=== PATIENT | male | born 1990 | race Caucasian/White ===

== ENCOUNTER 2024-11-15 23:17 | Emergency (ER) | payer MEDICAID, SELFPAY ==
[2024-11-15] MEDS: diphenhydrAMINE HCL 50 MG/ML VIAL IM (23:30)
[2024-11-15] MEDS: diazePAM 10 MG/2 ML CARTRIDGE 5 MG IM (23:30)
[2024-11-15] MEDS: Haloperidol Lactate 5 MG/ML VIAL IM (23:30)
[2024-11-15] MEDS: ondansetron HCL 4 MG/2 ML VIAL IM (23:30)
[2024-11-15 23:41] VITALS: RESP 23; BMI 38.0
[2024-11-15 23:45] VITALS: BP 126/79; PULSE 80; RESP 20; TEMP 37.2; O2SAT 96
[2024-11-16] MEDS: Midazolam HCl 5 MG/ML VIAL 10 MG IM (00:10)
[2024-11-16] MEDS: OLANZapine 10 MG VIAL 15 MG IM (00:10)
[2024-11-16 00:30] VITALS: BP 128/99; PULSE 86; RESP 18; O2SAT 96
--- NOTE | 2024-11-16 01:15 | ED.PSYCH ---
HPI - Psych General Chief Complaint: Behavioral Concerns Stated Complaint: hallucinating on mushrooms Time Seen by Provider: 11/15/24 23:25 Source: EMS Mode of arrival: EMS Limitations: other History of Present Illness ED Provider: Dr. Maria Del Carmen Gunderson HPI Narrative: patient comes to the emergency room via EMS. According to EMS, they got called by PD because the patient was in his aunt's house acting erratic, seems that he ingested mushrooms? EMS reports that the patient grabbed his uncle's urn, purposefully spilled the ashes on the floor and patient proceeded to throw himself in the ashes and make snow/akil angels, then he vomited on the ashes. patient is too intoxicated /under the influence of drugs to give any significant history. Patient is very combative. Related Data Allergies Allergy/AdvReac Type Severity Reaction Status Date / Time Penicillins [PENICILLINS] Allergy Severe HIVES Verified 11/15/24 23:43 amoxicillin [Amoxicillin] Allergy Unknown , Hives, Verified 11/15/24 23:43 hives penicillin V Allergy Unknown Unknown, Verified 11/15/24 23:43 hives Review of Systems Review of Systems: Yes Unobtainable due to mental status [facility] Past Medical History Medical History (Updated 11/16/24 @ 07:25 by Danny Wynne MD) Polysubstance abuse Social History Social History Advance Directives: No Advance Directives Information Provided: No Physical Exam Vital Signs: Vital Signs: Last Vital Signs Temp 97.4 F 11/16/24 07:17 Pulse 58 11/16/24 07:17 Resp 14 11/16/24 07:17 BP 92/62 11/16/24 07:17 Pulse Ox 98 11/16/24 07:17 O2 Del Method Room Air 11/16/24 07:17 BMI result Body Mass Index 38.0 Const: Other: Appearance: Alert. confused, acting erratic, not making any sense. Looks spaced out, staring into space, and drooling/spitting Eyes: Pupils equal, round and reactive to light. ENT: Pharynx normal. Neck: Normal inspection. Neck supple. No lymph nodes noted. No crepitus CVS: Normal heart rate and rhythm. Pulses normal. Normal S1 and S2 Respiratory: No respiratory distress. Breath sounds normal. No Wheezing. No rales Abdomen: Soft and nontender. No rigidity. No distention. Skin: Skin warm and diaphoretic, Normal skin color. Normal skin turgor. Extremities: moves all extremities Neuro: under the influence of drugs, unable to participate in cranial nerve assessment, grossly, cranial nerves 2 through 12 are intact Psych: erratic behavior, combative Course Course Course Narrative: been arrival, patient has been very erratic. Patient had to be given Haldol 5 mg IM, diphenhydramine 50 mg IM, Valium 5 mg IM. Patient actively vomiting /spitting, also given Zofran 5 mg IM. After all those medications, initially the patient was sitting still. However, within an hour, patient got up and started running around the emergency room, PD had to jaylin him and return him to his bed. Patient received additional midazolam 10 mg IM and olanzapine 15 mg IM. at this time, 01:30, patient is sleeping. We are able to obtain Labs. I was informed by the patient's nurse that patient blood pressure has dropped to the high 80s, likely secondary to Versed. Patient receiving IV fluids. Reevaluation(s) Reevaluation #1: Dr. Wynne: I was present during the period of the patient's acute delirium. He was initially agitated and difficult to redirect and required sedation. Security was required as well. After receiving several doses of sedative medications the patient finally fell asleep. He was observed during the remainder of the overnight shift. This morning the patient is awake and alert and coherent. He says that he normally takes Abilify and Zoloft and that he has a prescriber at the [facility]. He says that he was not doing anything to intentionally try to harm himself last night. He admits to using psychedelics mushrooms last night and says that he was only looking for a good trip. He is surprised to learn that he has a bad trip. At this point he feels comfortable being discharged. Denies any thoughts about harming himself or anyone else. He will call his mother for a ride. Time: 07:27 Medications Administered Discontinued Medications Generic Name Dose Route Start Last Admin Trade Name Freq PRN Reason Stop Dose Admin Diazepam 5 mg 11/15/24 23:25 11/15/24 23:30 Diazepam 10 Mg/2 Ml Cartridge IM 11/15/24 23:26 5 mg STAT STA Administration Diphenhydramine HCl 50 mg 11/15/24 23:25 11/15/24 23:30 Diphenhydramine Hcl 50 Mg/Ml Vial IM 11/15/24 23:26 50 mg ONCE ONE Administration Haloperidol Lactate 5 mg 11/15/24 23:25 11/15/24 23:30 Haloperidol Lactate 5 Mg/Ml Vial IM 11/15/24 23:26 5 mg STAT STA Administration Sodium Chloride 2,000 mls @ 999 mls/hr 11/16/24 01:34 11/16/24 03:39 Ns IVCONT 11/16/24 03:34 Infused .Q2H1M ONE Infusion Midazolam HCl 10 mg 11/15/24 23:59 11/16/24 00:10 Midazolam Hcl 5 Mg/Ml Vial IM 11/16/24 00:00 10 mg ONCE ONE Administration Olanzapine 15 mg 11/15/24 23:59 11/16/24 00:10 Olanzapine 10 Mg Vial IM 11/16/24 00:00 15 mg ONCE ONE Administration Ondansetron HCl 4 mg 11/15/24 23:25 11/15/24 23:30 Ondansetron Hcl 4 Mg/2 Ml Vial IM 11/15/24 23:26 4 mg ONCE ONE Administration Medical Decision Making Medical Decision Making MDM Narrative: My interpretation of labs: patient's hematology shows a normal white blood cell count, platelets slightly decreased at 117. The previous labs for comparison. No significant abnormality in patient's chemistry, AST and ALT bumped, normal T bili and D bili, normal alkaline phosphatase. , ETOH negative for alcohol patient is likely under the influence of drugs, likely psilocybin according to EMS, the patient's aunt mentioned to them that the patient has history of schizophrenia at this time, 02:30, patient is awake, sleeping comfortably. When patient is more awake, he will need assessment for SI/HI. patient is under physician observation sign out given to my colleague Dr. Wynne Differential Diagnosis Differential Diagnoses: The differential diagnosis associated with the presentation includes ( alcohol intoxication, polysubstance abuse, schizophrenia) Admission/Observation Consideration of admission/observation: Escalation of care including admission/observation considered ( patient is under physician observation, waiting for the patient to be alert and oriented x3 and to be reassessed for SI HI) Lab Data [facility] Lab Attestation statement: I reviewed the patient's lab results. 11/16/24 01:15 11/16/24 01:46 Labs: Lab Results 11/16/24 11/16/24 Range/Units 01:15 01:46 WBC 9.2 (4.8-10.8) X10*3/uL RBC 4.49 L (4.60-5.80) X10*6/uL Hgb 15.0 (14.0-18.0) g/dl Hct 40.9 L (42.0-52.0) % MCV 91.1 (80.0-98.0) fL MCH 33.4 H (27.0-33.0) pg MCHC 36.7 H (31.0-36.0) g/dl RDW 12.4 (11.0-16.0) % Plt Count 117 L (160-400) X10*3/uL MPV 9.1 L (9.4-12.4) fL Immature Gran % (Auto) 0.3 (0.0-0.4) % Neut % (Auto) 72.7 (45-73) % Lymph % (Auto) 16.4 L (20-40) % [place] % (Auto) 8.4 (2-11) % Eos % (Auto) 2.0 (0-4) % Baso % (Auto) 0.2 (0-2) % Lymph # (Auto) 1.5 (1.2-4.9) X10*3/uL [place] # (Auto) 0.8 (0.1-1.2) X10*3/uL Eos # (Auto) 0.2 (0.0-0.4) X10*3/uL Baso # (Auto) 0.0 (0.0-0.2) X10*3/uL Abs Immat Gran (auto) 0.03 (0.00-0.03) X10*3/uL Absolute Neuts (auto) 6.7 (2.0-8.3) x10*3/uL Absolute Nucleated RBC 0.000 (0.0-0.012) X10*3/uL Nucleated RBC % (auto) 0.0 (0.0-0.2) /100WBC Sodium 141 (135-145) mmol/L Potassium 3.7 (3.3-5.1) mmol/L Chloride 107 (96-108) mmol/L Carbon Dioxide 24 (22-29) mmol/L Anion Gap 14 (12-20) BUN 20 H (9-16) mg/dL Creatinine 0.70 (0.5-1.4) mg/dL Estim Creat Clear Calc 181.7 Estimated GFR > 60 Random Glucose 132 H (60-115) mg/dL Calcium 9.1 (8.4-10.2) mg/dL Magnesium 2.0 (1.6-2.6) mg/dL Total Bilirubin 1.0 (0.0-1.0) mg/dL Direct Bilirubin 0.4 (0.0-0.5) mg/dL AST 144 H (5-37) U/L ALT 190 H (0-40) U/L Alkaline Phosphatase 109 (39-117) U/L Total Protein 7.4 (6.5-8.0) g/dL Albumin 4.6 (3.5-5.0) g/dL Ethyl Alcohol < 10 mg/dL Critical Care Time Critical Care Time Critical Care Time: Yes Total Critical Care Time: 60 Attestation: I have personally provided critical care time. Time includes review of lab data, radiology results, discussion with consultants, and monitoring for potential decompensation. Intervention performed as documented. Discharge Plan Discharge Clinical Impression: Agitation, Delirium due to dissociative drug Patient Disposition: Home, Self-Care Additional Instructions: Please try to rest and take it easy today. Resume your normal medications. I would recommend avoiding the substances that you took last night. You seem to have had a bad trip. Please follow up with your regular medical and behavioral health providers. If you feel significantly worse please return to the emergency room. Referrals: [facility] [Provider Group] Nabila Gardner MD [Primary Care Provider] - Discharge Date/Time: 11/16/24 07:43 Print Language: Tajik
[2024-11-16 01:21] LABS: Basophils Percent Auto 0.2 % (0-2); Monocytes Percent Auto 8.4 % (2-11); PLT CLUMP 1; SCAN SMEAR FLAG 1
[2024-11-16 01:23] LABS: Eosinophils Absolute Auto 0.2 X10*3/uL (0.0-0.4); Hematocrit 40.9 % (42.0-52.0); Imm Gran Abs Auto 0.03 X10*3/uL (0.00-0.03); Imm Gran Pct Auto 0.3 % (0.0-0.4); Lymphocytes Absolute Auto 1.5 X10*3/uL (1.2-4.9); Lymphocytes Percent Auto 16.4 % (20-40); Mean Corpuscular HGB Conc 36.7 g/dl (31.0-36.0); Mean Corpuscular Hemoglobin 33.4 pg (27.0-33.0); Mean Corpuscular Volume 91.1 fL (80.0-98.0); Mean Platelet Volume 9.1 fL (9.4-12.4); Monocytes Absolute Auto 0.8 X10*3/uL (0.1-1.2); Neutrophils Absolute Auto 6.7 x10*3/uL (2.0-8.3); Neutrophils Percent Auto 72.7 % (45-73); Red Blood Count 4.49 X10*6/uL (4.60-5.80); Red Cell Distribution Width 12.4 % (11.0-16.0)
[2024-11-16 01:24] LABS: MANUAL DIFF FLAG NO; Platelet Count 117 X10*3/uL (160-400); White Blood Count 9.2 X10*3/uL (4.8-10.8)
[2024-11-16] MEDS: 0.9 % Sodium Chloride 2,000 ML 999 ML IVCONT (01:50)
[2024-11-16 02:15] LABS: Alanine Aminotransferase 190 U/L (0-40); Albumin Level 4.6 g/dL (3.5-5.0); Alkaline Phosphatase 109 U/L (39-117); Anion Gap 14 (12-20); Aspartate Amino Transferase 144 U/L (5-37); Bilirubin Direct 0.4 mg/dL (0.0-0.5); Blood Urea Nitrogen 20 mg/dL (9-16); Calcium 9.1 mg/dL (8.4-10.2); Carbon Dioxide 24 mmol/L (22-29); Chloride 107 mmol/L (96-108); Creatinine Clr Calc Pharmacy 181.7; Estimated Glomerular Filt Rate > 60; Ethanol < 10 mg/dL; Glucose Random 132 mg/dL (60-115); Potassium 3.7 mmol/L (3.3-5.1); Sodium 141 mmol/L (135-145); Total Protein 7.4 g/dL (6.5-8.0)
[2024-11-16 03:43] VITALS: BP 136/82; PULSE 62
--- NOTE | 2024-11-16 06:01 | PC.NURSE ---
pt compliant with twisting frame changer.
[2024-11-16 07:17] VITALS: BP 92/62; PULSE 58; RESP 14; TEMP 36.3; O2SAT 98
== END 2024-11-16 07:43 | disposition home or self-care (01) ==
PROVIDERS: Emergency Medicine; Emergency Provider Emergency Medicine; PCP Internal Medicine
DX: R45.1 Restlessness and agitation (principal); F19.121 Other psychoactive substance abuse with intoxication delirium
CPT/HCPCS: 36415; 80048; 80076; 80307; 83735; 85025; 96360; 96361; 96372; 99284; J1200; J1630; J2250; J2359; J2405; J3360

== ENCOUNTER 2024-12-22 13:48 | Emergency (ER) | payer MEDICAID, SELFPAY ==
--- NOTE | 2024-12-22 14:01 | ED_ITS ---
HPI - General Adult General Chief complaint: General Medical Stated complaint: PARANOID Time Seen by Provider: 12/22/24 14:01 History of Present Illness ED Provider: Sherrell KAHN narrative: The patient is a 34-year-old male who may have some history of an underlying psychiatric disorder. He also has a history of substance use disorder. He has 1 previous emergency room visit last month that was related to agitation secondary to mushroom use. Today he was brought to the hospital by ambulance after police became involved. There was some kind of a jaylin through the greco. The patient claims someone was chasing him. He says that someone with a motorcycle helmet and a jump soup was chasing him through the greco. He also says that he has been using IV drugs including fentanyl and cocaine. A aviation tactical readiness officer is at the bedside but the patient is not in handcuffs. Related Data Allergies Allergy/AdvReac Type Severity Reaction Status Date / Time Penicillins (PENICILLINS) Allergy Severe HIVES Verified 12/22/24 14:14 amoxicillin (Amoxicillin) Allergy Unknown , Hives, Verified 12/22/24 14:14 hives penicillin V Allergy Unknown Unknown, Verified 12/22/24 14:14 hives Review of Systems 2 Review of Systems: Yes all other systems are reviewed and are negative PMFSH Past Medical History Medical History (Updated 12/22/24 @ 18:27 by Danny Wynne MD) Polysubstance abuse Social History Social History Smoked in Last 30 Days: Yes Use of substances other than those prescribed or required for medical reasons: No Advance Directives: No Advance Directives Information Provided: Yes Do you have a plan to hurt others: No Plan Physical Exam ED Vital Signs: Vital Signs - 24 hr 12/22/24 14:12 12/22/24 17:01 12/22/24 18:45 Temperature 98.1 F Pulse Rate 94 76 79 Respiratory Rate 18 17 16 Blood Pressure 116/65 107/59 L 100/52 L Pulse Oximetry 94 96 98 Oxygen Delivery Method Room Air Room Air Room Air 12/22/24 19:00 Temperature 98.2 F Pulse Rate 79 Respiratory Rate 16 Blood Pressure 100/52 L Pulse Oximetry 98 Oxygen Delivery Method Room Air BMI result Body Mass Index 26.6 Const Other: The patient is awake and alert. He looks quite sweaty as if he had just exerted himself a lot. He was pleasant and cooperative. He did not seem in distress. HENDE Other: The face is symmetrical. ?Mucous membranes moist. Eyes General: appearance normal, both eyes and all related structures Neck Neck: Yes normal visual inspection, Yes full ROM and Yes no lymphadenopathy Resp Effort & Inspection: normal respiratory effort Auscultation: clear to auscultation bilaterally Cardio Rate: regular rate Rhythm: regular rhythm Heart sounds: S1 normal heart sound present, S2 normal heart sound present and Murmur heart sound present (No murmur heard) GI Other: Abdomen is soft and nontender Skin Other: The patient was sweaty. The patient has several areas where he has track segura on his arms. No obvious signs of cellulitis or other infection. Neuro Other: The patient is awake and alert. He seems reasonably well oriented. He is not frankly encephalopathic. Cranial nerves 2-12 are intact. He moves his extremities normally and symmetrically and appropriately. He seems to be without any focal neurological deficit Extrem Other: There is no calf swelling or tenderness. No asymmetry. No peripheral edema. Medications Administered Discontinued Medications Generic Name Dose Route Start Last Admin Trade Name Freq PRN Reason Stop Dose Admin Sodium Chloride 1,000 mls @ 999 mls/hr 12/22/24 17:15 12/22/24 18:30 Ns IV 12/22/24 18:15 Infused .Q1H1M RADHA Infusion Sodium Chloride 1,000 mls @ 999 mls/hr 12/22/24 18:15 12/22/24 18:38 Ns IV 12/22/24 19:15 Not Given .Q1H1M RADHA Medical Decision Making Medical Decision Making [facility] Narrative: The patient is a 34-year-old male who was brought to the hospital after having a jaylin with police. He was brought here for medical clearance. I believe he may be under arrest for an outstanding warrant. He has signs of recent IV drug use because of track segura on his arms but I see no signs of acute infection. I hear no cardiac murmur. He was very sweaty and it was very hot out today. His labs show that he was somewhat dehydrated. His BUN and creatinine were somewhat higher than previously. He was given IV fluids. His EKG showed a prolonged QTC. He is on methadone. He is part of a methadone program. He was observed and given IV fluids. A 2nd EKG showed no change in his QTC but a 3rd EKG showed significant improvement. At that point I felt he was medically clear and he was discharged. He was taken into police custody of the time of discharge. Lab Data 12/22/24 14:37 12/22/24 14:37 Labs: Lab Results 12/22/24 12/22/24 Range/Units 14:37 14:53 WBC 9.0 (4.8-10.8) X10*3/uL RBC 4.35 L (4.60-5.80) X10*6/uL Hgb 14.0 (14.0-18.0) g/dl Hct 39.0 L (42.0-52.0) % MCV 89.7 (80.0-98.0) fL MCH 32.2 (27.0-33.0) pg MCHC 35.9 (31.0-36.0) g/dl RDW 12.4 (11.0-16.0) % Plt Count 130 L (160-400) X10*3/uL MPV 10.3 (9.4-12.4) fL Immature Gran % (Auto) 0.6 H (0.0-0.4) % Neut % (Auto) 70.9 (45-73) % Lymph % (Auto) 19.4 L (20-40) % [place] % (Auto) 9.1 (2-11) % Eos % (Auto) 0.0 (0-4) % Baso % (Auto) 0.0 (0-2) % Lymph # (Auto) 0.3 L (1.2-4.9) X10*3/uL [place] # (Auto) 0.2 (0.1-1.2) X10*3/uL Eos # (Auto) 0.0 (0.0-0.4) X10*3/uL Baso # (Auto) 0.0 (0.0-0.2) X10*3/uL Abs Immat Gran (auto) 0.01 (0.00-0.03) X10*3/uL Absolute Neuts (auto) 1.2 L (2.0-8.3) x10*3/uL Absolute Nucleated RBC 0.000 (0.0-0.012) X10*3/uL Nucleated RBC % (auto) 0.0 (0.0-0.2) /100WBC Smear Tech's Comments VERIFIED Sodium 141 (135-145) mmol/L Potassium 4.0 (3.3-5.1) mmol/L Chloride 102 (96-108) mmol/L Carbon Dioxide 29 (22-29) mmol/L Anion Gap 14 (12-20) BUN 13 (9-16) mg/dL Creatinine 1.48 H (0.5-1.4) mg/dL Estim Creat Clear Calc 67.3 Estimated GFR 54 Random Glucose 92 (60-115) mg/dL Calcium 9.7 D (8.4-10.2) mg/dL Magnesium 2.1 (1.6-2.6) mg/dL Total Bilirubin 1.9 H (0.0-1.0) mg/dL Direct Bilirubin 0.7 H (0.0-0.5) mg/dL AST 72 H (5-37) U/L ALT 65 H (0-40) U/L Alkaline Phosphatase 101 (39-117) U/L Total Protein 7.9 (6.5-8.0) g/dL Albumin 4.6 (3.5-5.0) g/dL Urine Color Dark Yellow Urine Appearance Cloudy Urine pH 5.5 (5.0-9.0) Ur Specific [place] >= 1.030 H (1.005-1.025) Urine Protein 100 (2+) H (Neg-Trace) mg/dL Urine Glucose (UA) Negative (Negative) mg/dL Urine Ketones Trace (Negative) mg/dL Urine Blood Negative (Negative) Urine Nitrite Positive H (Negative) Ur Leukocyte Esterase Small (1+) H (Negative) Urine RBC 0-2 (0-2) /HPF Urine WBC 0-5 (0-5) /HPF Ur Squamous Epith Cells 11-20 (0-2) /HPF Urine Bacteria None Seen (None Seen) Hyaline Casts >20 (0-2) /LPF Urine Opiates Screen POSITIVE H (Not Detect) Ur Buprenorphine Scrn Not Detected (Not Detect) ng/mL Ur Oxycodone Screen Not Detected (Not Detect) ng/mL Urine Methadone Screen Positive H (Not Detect) ng/mL Urine Fentanyl Screen POSITIVE H (Not Detect) Ur Barbiturates Screen Not Detected (Not Detect) Ur Phencyclidine Scrn Not Detected (Not Detect) Ur Amphetamines Screen Not Detected (Not Detect) U Benzodiazepines Scrn Not Detected (Not Detect) Urine Cocaine Screen POSITIVE H (Not Detect) U Marijuana (THC) Screen POSITIVE H (Not Detect) Ethyl Alcohol < 10 mg/dL Discharge Plan Discharge Clinical Impression: Dehydration Patient Disposition: Home, Self-Care Additional Instructions: You were somewhat dehydrated. You were given IV fluids. Please try to avoid using IV drugs in the future. Please try to get a primary care doctor. We have provided contact information for some local primary care doctor offices Return to the emergency room if you feel significantly worse Referrals: [facility] [Provider Group] [facility] [place], [place]] [facility] [place] [facility] [Provider Group, Primary Care] Interventions: ED Discharge Assessment Last Done: 12/22/24 19:00 Discharge Date/Time: 12/22/24 19:00 Print Language: Bahamian
--- NOTE | 2024-12-22 14:08 | ECG_ITS ---
Test Reason : OVERDOSE Blood Pressure : */* mmHG Vent. Rate : 90 BPM Atrial Rate : 90 BPM P-R Int : 174 ms QRS Dur : 106 ms QT Int : 464 ms P-R-T Axes : 74 47 60 degrees QTcB Int : 567 ms Normal sinus rhythm Incomplete right bundle branch block Prolonged QT Abnormal ECG No previous ECGs available Referred By: Danny Wynne Electronically Signed By: SADAF GOLDBERG
[2024-12-22 14:12] VITALS: BP 116/65; BP 122/85; PULSE 94; RESP 18; TEMP 36.7; O2SAT 94; O2SAT 95; BMI 26.6
--- OUTSIDE RECORDS SUMMARY | 2024-12-22 14:52 | XMS_ITS | Clinical Summary ---
Author Organization [facility] Address [address] [place] [address] Care Team Providers Care Scrap Sorter Name Role Phone Williams Quintero Primary Care Prov ider Source Comments PLEASE NOTE, if this patient is a minor, it may be UNLAWFUL to discuss sensitive information that is contained in these records (such as FAMILY PLANNING, MENTAL HEALTH or SUBSTANCE ABUSE) with the minor patient's parent or other person without the patient's specific authorization.[facility] Social History Tobacco Use Types Packs/Day Years Used Date Smoking Tobacco: Never Assessed Sex and Gender Information Value Date Recorded Sex Assigned at Not on file Legal Sex Male 12:29 PM PDT Gender Identity Not on file Sexual Orientation Not on file Plan of Treatment Not on file Insurance [facility] Care Teams Scrap Sorter Relationship Specialty Start Date End Date Williams Quintero FNP [address] [place] [address] PCP - General 03/22/20
[2024-12-22 15:05] LABS: Appearance Urine Cloudy; Glucose Urine UA Negative (Negative); PH 5.5 (5.0-9.0); Specific Gravity - Urine >= 1.030 (1.005-1.025); UMIC TRIGGER UACC YES
[2024-12-22 15:10] LABS: Cannabinoid Screen Urine POSITIVE (Not Detect)
[2024-12-22 15:13] LABS: Alanine Aminotransferase 65 U/L (0-40); Albumin Level 4.6 g/dL (3.5-5.0); Alkaline Phosphatase 101 U/L (39-117); Anion Gap 14 (12-20); Aspartate Amino Transferase 72 U/L (5-37); Blood Urea Nitrogen 13 mg/dL (9-16); Calcium 9.7 mg/dL (8.4-10.2); Carbon Dioxide 29 mmol/L (22-29); Chloride 102 mmol/L (96-108); Creatinine Clr Calc Pharmacy 67.3; Estimated Glomerular Filt Rate 54; Potassium 4.0 mmol/L (3.3-5.1); Sodium 141 mmol/L (135-145); Total Protein 7.9 g/dL (6.5-8.0)
--- NOTE | 2024-12-22 15:16 | PC.NURSE ---
patient a&ox3, calm/cooporative at this time, tech to draw labs/do ekg, police at bedside- security came to bedside did search of patient, after discussion with security, provider and PD it was decided to leave the patient in his clothes as he will discharge to police custody once labs come back.
[2024-12-22 15:30] LABS: UACC Culture Trigger YES
[2024-12-22 15:44] LABS: Magnesium 2.1 mg/dL (1.6-2.6)
[2024-12-22 15:46] LABS: Imm Gran Abs Auto 0.01 X10*3/uL (0.00-0.03); Imm Gran Pct Auto 0.6 % (0.0-0.4); Lymphocytes Absolute Auto 0.3 X10*3/uL (1.2-4.9); MANUAL DIFF FLAG SCAN; Mean Corpuscular HGB Conc 35.9 g/dl (31.0-36.0); Mean Corpuscular Hemoglobin 32.2 pg (27.0-33.0); Mean Corpuscular Volume 89.7 fL (80.0-98.0); NRBC Abs Auto 0.000 X10*3/uL (0.0-0.012); NRBC Pct Auto 0.0 /100WBC (0.0-0.2); SCAN SMEAR FLAG 1
[2024-12-22 15:47] LABS: Red Blood Count 4.35 X10*6/uL (4.60-5.80); White Blood Count 9.0 X10*3/uL (4.8-10.8)
[2024-12-22 15:48] LABS: Hematocrit 39.0 % (42.0-52.0); Hemoglobin 14.0 g/dl (14.0-18.0); Platelet Count 130 X10*3/uL (160-400)
--- NOTE | 2024-12-22 15:55 | ECG_ITS ---
Test Reason : PROLONG QT Blood Pressure : */* mmHG Vent. Rate : 78 BPM Atrial Rate : 78 BPM P-R Int : 174 ms QRS Dur : 106 ms QT Int : 498 ms P-R-T Axes : 67 40 54 degrees QTcB Int : 567 ms Normal sinus rhythm Incomplete right bundle branch block Prolonged QT Abnormal ECG When compared with ECG of 22-Dec-2024 14:57, No significant change was found Referred By: Danny Wynne Electronically Signed By: SADAF GOLDBERG
[2024-12-22 17:01] VITALS: BP 107/59; PULSE 76; RESP 17; O2SAT 96
--- NOTE | 2024-12-22 17:29 | PC.NURSE ---
iv inserted, ivf hung per order
--- NOTE | 2024-12-22 18:05 | ECG_ITS ---
Test Reason : QT INTERRAL Blood Pressure : */* mmHG Vent. Rate : 68 BPM Atrial Rate : 68 BPM P-R Int : 166 ms QRS Dur : 104 ms QT Int : 424 ms P-R-T Axes : 63 51 24 degrees QTcB Int : 450 ms Normal sinus rhythm Incomplete right bundle branch block Borderline ECG When compared with ECG of 22-Dec-2024 16:18, Nonspecific T wave abnormality now evident in Inferior leads QT has shortened Referred By: Danny Wynne Electronically Signed By: SADAF GOLDBERG
--- NOTE | 2024-12-22 18:20 | PC.NURSE ---
IVF pt had completed fluids prior to the order being discontinued, the order wouldnt allow this nurse to end the fluids in [facility]. repeat ekg was performed
[2024-12-22 18:45] VITALS: BP 100/52; PULSE 79; RESP 16; O2SAT 98
[2024-12-22 19:00] VITALS: BP 100/52; PULSE 79; RESP 16; TEMP 36.8; O2SAT 98
== END 2024-12-22 19:00 | disposition home or self-care (01) ==
PROVIDERS: Emergency Provider Emergency Medicine
DX: E86.0 Dehydration (principal); R11.2 Nausea with vomiting, unspecified; I45.10 Unspecified right bundle-branch block; R94.31 Abnormal electrocardiogram [ECG] [EKG]; F11.10 Opioid abuse, uncomplicated; F14.90 Cocaine use, unspecified, uncomplicated; Z51.81 Encounter for therapeutic drug level monitoring; Z79.899 Other long term (current) drug therapy; Z71.51 Drug abuse counseling and surveillance of drug abuser
CPT/HCPCS: 36415; 80048; 80076; 80307; 81001; 81003; 83735; 85025; 87086; 93005; 96360; 99285

== ENCOUNTER → 2024-12-22 14:08 | Outpatient (BNV) | payer MEDICAID, SELFPAY | PROVIDERS: Emergency Provider Emergency Medicine; Visit Provider Internal Medicine | DX: R94.31 Abnormal electrocardiogram [ECG] [EKG] (principal) | CPT/HCPCS: 93010 ==